=== PATIENT | male | born 1940 | race Caucasian/White ===

== ENCOUNTER 2019-08-21 11:22 | Inpatient (IN) | payer OTHER ==
[2019-08-14 15:36] LABS: BASOPHILS % (AUTO) 0.4 % (0-1); EOSINOPHILS # (AUTO) 0.2 X10'3 (0-0.9); EOSINOPHILS % (AUTO) 2.1 % (0-6); LYMPHOCYTES # (AUTO) 1.3 X10'3 (1.1-4.8); LYMPHOCYTES % (AUTO) 15.2 % (21-51); MEAN CORPUSCULAR HEMOGLOBIN 33.2 PG (27.0-31.0); MEAN CORPUSCULAR HGB CONC 34.8 g/dL (33.0-36.5); MEAN CORPUSCULAR VOLUME 95.4 FL (78-98); MEAN PLATELET VOLUME 9.1 FL (7.4-10.4); MONOCYTES # (AUTO) 0.6 X10'3 (0-0.9); MONOCYTES % (AUTO) 7.6 % (2-12); NEUTROPHILS # (AUTO) 6.3 X10'3 (1.8-7.7); NEUTROPHILS % (AUTO) 74.7 % (42-75); PRE OP HEMATOCRIT 46.5 % (42.0-52.0); PRE OP HEMOGLOBIN 16.2 g/dL (14.0-17.9); PRE OP PLATELET COUNT 202 X10'3 (140-440); RED BLOOD COUNT 4.87 X10'6 (4.70-6.10); RED CELL DISTRIBUTION WIDTH 13.6 % (11.5-14.5)
[2019-08-14 15:47] LABS: PRE OP PROTIME 10.4 SECONDS (9.0-12.0)
[2019-08-14 15:50] LABS: ALBUMIN 3.6 G/DL (3.4-5.0); ALKALINE PHOSPHATASE 75 IU/L (46-116); BLOOD UREA NITROGEN 19 MG/DL (7-18); BUN/CREATININE RATIO 16.4 (5.4-32.0); CALCIUM 9.4 MG/DL (8.5-10.1); CHLORIDE 100 MMOL/L (99-107); CREATININE 1.16 MG/DL (0.60-1.10); PRE OP ALT 22 U/L (30-65); PRE OP ANION GAP 7 (8-16); PRE OP AST 18 U/L (10-37); PRE OP BILIRUB, TOTAL 1.2 MG/DL (0.0-1.0); PRE OP GLUCOSE 122 MG/DL (70-104); PRE OP POTASSIUM 4.2 MMOL/L (3.4-5.1); PRE OP SODIUM 136 MMOL/L (135-145); TOTAL CARBON DIOXIDE 29.3 MMOL/L (24-32); TOTAL PROTEIN 7.2 G/DL (6.4-8.2); eGFR 61 ML/MIN
[~2019-08-21] VITALS: Ht 180.3 cm; Wt 117.9 kg
[2019-08-21] VITALS (16 sets, daily range): BP systolic 132–171; BP diastolic 55–91
[~2019-08-21 11:22] MED LIST: ALBU8.5H8 INH; ASCO500C15 PO; ASPI81TA30 PO; ATR0.5NEB NEB; CETI-102 PO; CHOL100046 PO; DOCUMENT DATE & TIME OF BETA-BLOCKER PO ONE; FAMO20TA8 PO; FISH12002 PO; FLUT16SP2 BOTHNARES; FLUT1BLS11 INH; GLUC-162 PO; MELO-102 PO; METO-395 PO; MONT10TA24 PO; MULT-933 PO; SIMV10TA98 PO; TIOT18CA3 INH; VALS80TA32 PO; cefazolin/dext.iso 2gm/100ml 100 ML IV ONE; famotidine 20mg tablet PO ONE; ringers solution, lacted 1,000 ML IV SCH; vancomycin inj 1,500 MG in normal saline 300ml IV soln IV ONE
[2019-08-21] MEDS ORDERED: ceFAZolin 1000mg inj ONE (13:31)
[2019-08-21] MEDS ORDERED: ondansetron/PF 4mg/2ml inj ONE (14:01)
[2019-08-21] MEDS ORDERED: sevoflurane 250ml liquid IH ONE (14:01)
[2019-08-21] MEDS ORDERED: tranexamic acid inj. 1,000 MG in normal saline 100 ML IV ONE (14:15)
[2019-08-21] MEDS ORDERED: fentaNYL/PF 50MCG/1 ML 2ML syringe ONE ×2 (14:21→15:01)
[2019-08-21] MEDS ORDERED: midazolam 2 mg/2 ml injection ONE (14:22)
[2019-08-21] MEDS ORDERED: ringers solution, lacted 1,000 ML IV SCH (15:13)
[2019-08-21] MEDS ORDERED: ROPIVAcaine 0.2% (10 MG/5 ML) BOLUS INJECTION ADDCANAL PRN (15:15)
[2019-08-21] MEDS ORDERED: morphine 4 MG/ML inj SYRINge IV PRN (15:15)
[2019-08-21] MEDS ORDERED: HYDROmorphone inj. 0.5 MG/0.5 ML DISP.SYRIN IV PRN ×2 (15:15→16:20)
[2019-08-21] MEDS ORDERED: ondansetron/PF 4mg/2ml inj IV PRN ×2 (15:15→16:20)
[2019-08-21] MEDS ORDERED: LIDOcaine 2% (20mg/ml) 5ml vial ONE ×2 (15:21→15:49)
[2019-08-21] MEDS ORDERED: propofol inj 20 ML IV ONE (15:21)
[2019-08-21] MEDS ORDERED: ROPIVAcaine 0.5% (5mg/ml) 30ml vial ONE (15:24)
[2019-08-21] MEDS ORDERED: bisacodyl 10mg suppository rectal RC PRN (16:20)
[2019-08-21] MEDS ORDERED: magnesium hydroxide 30ml (MOM) UD suspension PO PRN (16:20)
[2019-08-21] MEDS ORDERED: diphenhydrAMINE 25mg capsule PO PRN ×2 (16:20)
[2019-08-21] MEDS ORDERED: non-formulary drug (Albuterol Sulfate (Proair Hfa) 2 PUFFS) INH SCH (16:20)
[2019-08-21] MEDS ORDERED: acetaminophen 325mg tablet PO PRN (16:20)
[2019-08-21] MEDS: ROPIVAcaine 0.2%/PF PUMP/bolus 550 ML ADDCANAL SCH ×2 (16:26→21:02)
--- NOTE | 2019-08-21 16:30 | NUR ---
ADMITTED TO PACU FROM OR ACCOMPANIED BY ANESTHESIA. INTIAL PHYSICAL ASSESSMENT DONE AND RECORDED. REPORT RECEIVED FROM ANESTHESIA.
[2019-08-21] MEDS ORDERED: ipratropium/albuterol 3ml nebule IH PRN (16:40)
[2019-08-21] MEDS ORDERED: aspirin 325mg tablet PO SCH (17:30)
--- NOTE | 2019-08-21 17:30 | NUR ---
DISCHARGE CRITERIA MET, REPORT TO FLOOR NURSE IRAIDA HERBERT, VSS TRANSFERRED TO ROOM IN GOOD, STABLE CONDITION. ON Q INCREASED TO 6 AND PRIMER PUMP INITIATED.
--- NOTE | 2019-08-21 18:25 | NUR ---
Received report from KEON Phelan. Assumed patient care.
--- NOTE | 2019-08-21 18:38 | NUR ---
Problems reprioritized. Patient report given, questions answered & plan of care reviewed with KEON Vail.
[2019-08-21] MEDS: potassium Cl 20mEq in NS 1,000 ML IV SCH (18:57)
[2019-08-21] MEDS: famotidine 20mg tablet PO SCH (19:20)
[2019-08-21] MEDS ORDERED: vancomycin/NS 1 GM ADD-VANTAGE 250 ML IV SCH (20:00)
[2019-08-21] MEDS ORDERED: ipratropium 0.5 MG/2.5ML nebule NEB SCH (20:00)
[2019-08-21] MEDS ORDERED: aspirin 81mg tablet.DR PO ONE (20:35)
[2019-08-21] MEDS: sennosides 8.6mg tablet PO SCH (20:59)
[2019-08-21] MEDS: albuterol 2.5 MG/3 ML nebule NEB SCH (21:22)
[2019-08-21] MEDS: budesonide 0.5mg/2ml UD nebule IH SCH (21:22)
[2019-08-21] MEDS: HYDROcodone/acetaminophen 10/325mg tab PO PRN (21:38)
[2019-08-21] MEDS: ceFAZolin/D5W- 1GM premix 50 ML IV SCH (23:57)
[2019-08-22] VITALS (7 sets, daily range): BP systolic 110–125; BP diastolic 41–69
[2019-08-22] MEDS: HYDROcodone/acetaminophen 10/325mg tab PO PRN ×3 (02:23→14:34)
[2019-08-22] MEDS: albuterol 2.5 MG/3 ML nebule NEB SCH (02:49)
--- NOTE | 2019-08-22 06:22 | NUR ---
Patient report given, questions answered and plan of care reviewed with KEON Root.
--- NOTE | 2019-08-22 06:34 | NUR ---
Patient in room ORTHO 4012. I have received report from KEON Root. and had the opportunity to ask questions and assume patient care.
--- NOTE | 2019-08-22 06:43 | NUR ---
Patient in room ORTHO 4012. I have received report from Genna HERBERT and had the opportunity to ask questions and assume patient care.
[2019-08-22] MEDS: potassium Cl 20mEq in NS 1,000 ML IV SCH ×3 (06:48→22:29)
--- NOTE | 2019-08-22 06:50 | NUR ---
on-q increased to 10ml/hr
[2019-08-22 07:06] LABS: BASOPHILS % (AUTO) 0.3 % (0-1); EOSINOPHILS # (AUTO) 0.1 X10'3 (0-0.9); EOSINOPHILS % (AUTO) 0.7 % (0-6); HEMATOCRIT 40.2 % (42.0-52.0); HEMOGLOBIN 14.2 g/dl (14.0-17.9); LYMPHOCYTES # (AUTO) 1.2 X10'3 (1.1-4.8); LYMPHOCYTES % (AUTO) 14.3 % (21-51); MEAN CORPUSCULAR HEMOGLOBIN 33.2 PG (27.0-31.0); MEAN CORPUSCULAR HGB CONC 35.3 g/dL (33.0-36.5); MEAN CORPUSCULAR VOLUME 94.2 FL (78-98); MONOCYTES # (AUTO) 0.8 X10'3 (0-0.9); MONOCYTES % (AUTO) 9.8 % (2-12); NEUTROPHILS # (AUTO) 6.4 X10'3 (1.8-7.7); NEUTROPHILS % (AUTO) 74.9 % (42-75); PLATELET COUNT 161 X10'3 (140-440); RED BLOOD COUNT 4.27 X10'6 (4.70-6.10); RED CELL DISTRIBUTION WIDTH 13.1 % (11.5-14.5); WHITE BLOOD COUNT 8.5 X10'3 (4.5-11.0)
[2019-08-22] MEDS: ceFAZolin/D5W- 1GM premix 50 ML IV SCH (07:20)
[2019-08-22] MEDS: ipratropium/albuterol 3ml nebule NEB SCH ×3 (07:30→20:22)
[2019-08-22] MEDS: budesonide 0.5mg/2ml UD nebule IH SCH ×2 (07:30→20:23)
[2019-08-22 07:39] LABS: ALANINE AMINOTRANSFERASE 17 U/L (12-78); ALBUMIN/GLOBULIN RATIO 1.1 (1.1-1.5); ALKALINE PHOSPHATASE 66 IU/L (46-116); ANION GAP 6 (8-16); ASPARTATE AMINO TRANSFERASE 16 U/L (10-37); BILIRUBIN,TOTAL 1.5 MG/DL (0.1-1.0); BLOOD UREA NITROGEN 8 MG/DL (7-18); BUN/CREATININE RATIO 7.6 (5.4-32.0); CALCIUM 8.4 MG/DL (8.5-10.1); CHLORIDE 102 MMOL/L (99-107); CREATININE 1.05 MG/DL (0.60-1.10); GLUCOSE 104 MG/DL (70-104); SODIUM 136 MMOL/L (135-145); TOTAL CARBON DIOXIDE 27.7 MMOL/L (24-32); TOTAL PROTEIN 5.8 G/DL (6.4-8.2); eGFR 68 ML/MIN
[2019-08-22] MEDS ORDERED: non-formulary drug (Tiotropium Bromide (Spiriva) 2 PUFFS) INH SCH (08:00)
[2019-08-22] MEDS ORDERED: non-formulary drug (Fluticasone Propion/Salmeterol (Wixela 500-50 Inhub) 1 PUFF) INH SCH (08:00)
[2019-08-22] MEDS: losartan 50mg tablet PO SCH (08:00)
[2019-08-22] MEDS: montelukast 10mg tablet PO SCH (08:21)
[2019-08-22] MEDS: famotidine 20mg tablet PO SCH ×2 (08:22→20:01)
[2019-08-22] MEDS: aspirin 81mg tablet.DR PO SCH ×2 (08:22→17:49)
[2019-08-22] MEDS: metoprolol succinate 25mg (24-HOUR) SR. Tablet PO SCH (08:49)
[2019-08-22] MEDS: ROPIVAcaine 0.2%/PF PUMP/bolus 550 ML ADDCANAL SCH (09:15)
--- NOTE | 2019-08-22 11:38 | NUR ---
Student Medication Administration:For this medication-pass time frame [id number], all medications were reviewed, administered and documented per hospital policy by Elvia Nix. Student documentation:I have reviewed and agree with all interventions, assessments performed and documented by Elvia Nix.
--- NOTE | 2019-08-22 18:20 | NUR ---
Received patient report from KEON Root. Assumed patient care.
--- NOTE | 2019-08-22 18:22 | NUR ---
Problems reprioritized. Patient report given, questions answered & plan of care reviewed with Genna HERBERT.
[2019-08-22] MEDS: sennosides 8.6mg tablet PO SCH (20:01)
[2019-08-23] MEDS: ipratropium/albuterol 3ml nebule NEB SCH ×4 (03:00→20:15)
[2019-08-23] MEDS: HYDROcodone/acetaminophen 10/325mg tab PO PRN (05:16)
[2019-08-23 06:00] VITALS: BP 139/64
--- NOTE | 2019-08-23 06:02 | NUR ---
Patient report given, questions answered and plan of care reviewed with KEON Root
[2019-08-23 06:04] LABS: BASOPHILS % (AUTO) 0.2 % (0-1); EOSINOPHILS % (AUTO) 0.4 % (0-6); HEMATOCRIT 37.1 % (42.0-52.0); HEMOGLOBIN 13.2 g/dl (14.0-17.9); LYMPHOCYTES % (AUTO) 12.5 % (21-51); MEAN CORPUSCULAR HEMOGLOBIN 33.9 PG (27.0-31.0); MEAN CORPUSCULAR HGB CONC 35.6 g/dL (33.0-36.5); MEAN CORPUSCULAR VOLUME 95.2 FL (78-98); MONOCYTES # (AUTO) 0.9 X10'3 (0-0.9); MONOCYTES % (AUTO) 11.6 % (2-12); NEUTROPHILS # (AUTO) 5.9 X10'3 (1.8-7.7); NEUTROPHILS % (AUTO) 75.3 % (42-75); PLATELET COUNT 133 X10'3 (140-440); RED CELL DISTRIBUTION WIDTH 13.5 % (11.5-14.5); WHITE BLOOD COUNT 7.8 X10'3 (4.5-11.0)
[2019-08-23 06:26] LABS: ALANINE AMINOTRANSFERASE 12 U/L (12-78); ALBUMIN 2.6 G/DL (3.4-5.0); ALBUMIN/GLOBULIN RATIO 0.8 (1.1-1.5); ALKALINE PHOSPHATASE 59 IU/L (46-116); ANION GAP 9 (8-16); ASPARTATE AMINO TRANSFERASE 16 U/L (10-37); BILIRUBIN,TOTAL 1.8 MG/DL (0.1-1.0); BLOOD UREA NITROGEN 9 MG/DL (7-18); CALCIUM 8.1 MG/DL (8.5-10.1); CHLORIDE 100 MMOL/L (99-107); GLUCOSE 115 MG/DL (70-104); POTASSIUM 3.7 MMOL/L (3.5-5.1); SODIUM 135 MMOL/L (135-145); TOTAL CARBON DIOXIDE 26.5 MMOL/L (24-32); TOTAL PROTEIN 5.8 G/DL (6.4-8.2); eGFR 81 ML/MIN
--- NOTE | 2019-08-23 07:15 | NUR ---
Patient in room ORTHO 4012. I have received report from kat kennedy and had the opportunity to ask questions and assume patient care.
[2019-08-23] MEDS: losartan 50mg tablet PO SCH (08:14)
[2019-08-23] MEDS: montelukast 10mg tablet PO SCH (08:14)
[2019-08-23] MEDS: metoprolol succinate 25mg (24-HOUR) SR. Tablet PO SCH (08:14)
[2019-08-23] MEDS: aspirin 81mg tablet.DR PO SCH ×2 (08:15→17:46)
[2019-08-23] MEDS: famotidine 20mg tablet PO SCH ×2 (08:15→20:31)
[2019-08-23] MEDS: budesonide 0.5mg/2ml UD nebule IH SCH ×2 (09:05→20:15)
[2019-08-23 10:00] VITALS: BP 135/58
[2019-08-23] MEDS: potassium Cl 20mEq in NS 1,000 ML IV SCH (10:36)
[2019-08-23] MEDS: ROPIVAcaine 0.2%/PF PUMP/bolus 550 ML ADDCANAL SCH (10:50)
[2019-08-23 18:00] VITALS: BP 128/55
--- NOTE | 2019-08-23 18:14 | NUR ---
Problems reprioritized. Patient report given, questions answered & plan of care reviewed with Briseida HERBERT.
[2019-08-23] MEDS: sennosides 8.6mg tablet PO SCH (20:31)
[2019-08-23 22:00] VITALS: BP 120/58
[2019-08-24] MEDS: ipratropium/albuterol 3ml nebule NEB SCH ×3 (02:53→13:52)
[2019-08-24] MEDS: HYDROcodone/acetaminophen 10/325mg tab PO PRN (05:05)
[2019-08-24 06:00] VITALS: BP 145/77
--- NOTE | 2019-08-24 06:00 | NUR ---
Patient in room ORTHO 4012. I have received report from Briseida HERBERT and had the opportunity to ask questions and assume patient care.
[2019-08-24 06:54] LABS: BASOPHILS % (AUTO) 0.3 % (0-1); EOSINOPHILS # (AUTO) 0.1 X10'3 (0-0.9); EOSINOPHILS % (AUTO) 1.1 % (0-6); HEMATOCRIT 36.9 % (42.0-52.0); HEMOGLOBIN 13.1 g/dl (14.0-17.9); LYMPHOCYTES % (AUTO) 12.6 % (21-51); MEAN CORPUSCULAR HEMOGLOBIN 33.5 PG (27.0-31.0); MEAN CORPUSCULAR HGB CONC 35.4 g/dL (33.0-36.5); MEAN CORPUSCULAR VOLUME 94.6 FL (78-98); MONOCYTES # (AUTO) 0.7 X10'3 (0-0.9); MONOCYTES % (AUTO) 8.9 % (2-12); NEUTROPHILS # (AUTO) 5.9 X10'3 (1.8-7.7); NEUTROPHILS % (AUTO) 77.1 % (42-75); PLATELET COUNT 137 X10'3 (140-440); RED CELL DISTRIBUTION WIDTH 13.3 % (11.5-14.5); WHITE BLOOD COUNT 7.6 X10'3 (4.5-11.0)
[2019-08-24 07:16] LABS: ALANINE AMINOTRANSFERASE 11 U/L (12-78); ALBUMIN 2.5 G/DL (3.4-5.0); ALBUMIN/GLOBULIN RATIO 0.7 (1.1-1.5); ALKALINE PHOSPHATASE 58 IU/L (46-116); ANION GAP 9 (8-16); ASPARTATE AMINO TRANSFERASE 16 U/L (10-37); BILIRUBIN,TOTAL 1.1 MG/DL (0.1-1.0); BLOOD UREA NITROGEN 10 MG/DL (7-18); BUN/CREATININE RATIO 12.5 (5.4-32.0); CALCIUM 8.2 MG/DL (8.5-10.1); CHLORIDE 98 MMOL/L (99-107); GLUCOSE 110 MG/DL (70-104); POTASSIUM 3.8 MMOL/L (3.5-5.1); SODIUM 133 MMOL/L (135-145); TOTAL CARBON DIOXIDE 25.6 MMOL/L (24-32); eGFR > 90 ML/MIN
[2019-08-24] MEDS: montelukast 10mg tablet PO SCH (08:21)
[2019-08-24] MEDS: losartan 50mg tablet PO SCH (08:22)
[2019-08-24] MEDS: famotidine 20mg tablet PO SCH (08:22)
[2019-08-24] MEDS: metoprolol succinate 25mg (24-HOUR) SR. Tablet PO SCH (08:23)
[2019-08-24] MEDS: aspirin 81mg tablet.DR PO SCH (08:23)
[2019-08-24 08:31] VITALS: BP 128/67
[2019-08-24] MEDS ORDERED: HYDR-4353 PO (09:00)
[2019-08-24] MEDS ORDERED: ASPI-1071 PO (09:00)
[2019-08-24] MEDS: budesonide 0.5mg/2ml UD nebule IH SCH (09:05)
[2019-08-24 10:00] VITALS: BP 122/65
--- NOTE | 2019-08-24 11:51 | NUR ---
Student documentation: I have reviewed all interventions, assessments performed and documented by Fausto PULLIAM [facility]. Student Medication Administration: For this medication-pass time frame, all medication were reviewed, dispensed, administered and documented per hospital policy by Fausto Lizarraga [facility].
== END 2019-08-24 16:10 | disposition home health service (06) | DRG 467 ==
LOC: PAS IN 11:22 → EDSTATUS 14:00 → ORTHO 4S 17:30
PROVIDERS: ADMIT Orthopaedic Surgery; ATTEND Orthopaedic Surgery
PROC: 0SRV0JZ Replacement of Right Knee Joint, Tibial Surface with Synthetic Substitute, Open Approach (ICD-10-PCS; 2019-08-21)
PROC: 3E0T3BZ Introduction of Anesthetic Agent into Peripheral Nerves and Plexi, Percutaneous Approach (ICD-10-PCS; 2019-08-21)
PROC: 0SPV0JZ Removal of Synthetic Substitute from Right Knee Joint, Tibial Surface, Open Approach (ICD-10-PCS; principal; 2019-08-21 14:01)
DX: M25.361 Other instability, right knee (principal); D62 Acute posthemorrhagic anemia; I10 Essential (primary) hypertension; M17.11 Unilateral primary osteoarthritis, right knee; J44.9 Chronic obstructive pulmonary disease, unspecified; K21.9 Gastro-esophageal reflux disease without esophagitis; E66.9 Obesity, unspecified; Z68.36 Body mass index [BMI] 36.0-36.9, adult; Z79.899 Other long term (current) drug therapy
CPT/HCPCS: 36415; 80053; 82948; 85025; 85610; 85730; 86885; 86900; 86901; 86920; 87081; 93005; 94640; 94760; 97110; 97116; 97162; 97530; G0378; J0690; J2001; J2250; J2405; J2704; J2795; J3010; J3370; J3480; J7120; J7626

== ENCOUNTER 2020-06-25 10:57 | Emergency (ER) | payer OTHER ==
[~2020-06-25] VITALS: Ht 182.9 cm; Wt 10.9 kg
[~2020-06-25 10:57] MED LIST changes: +ADV50100 IH; -ASCO500C15 PO; +ASPI-612 PO; -ASPI81TA30 PO; -CETI-102 PO; +CETI10CA PO; -CHOL100046 PO; -DOCUMENT DATE & TIME OF BETA-BLOCKER PO ONE; -FISH12002 PO; +FLUT16SP16 BOTHNARES; -FLUT16SP2 BOTHNARES; -GLUC-162 PO; -MELO-102 PO; -MONT10TA24 PO; +MONT10TA26 PO; -MULT-933 PO; -VALS80TA32 PO; -cefazolin/dext.iso 2gm/100ml 100 ML IV ONE; -famotidine 20mg tablet PO ONE; -ringers solution, lacted 1,000 ML IV SCH; -vancomycin inj 1,500 MG in normal saline 300ml IV soln IV ONE
--- NOTE | 2020-06-25 11:06 | NUR ---
PLEASE CALL PT'S SOURCE INSPECTOR TO PICK HIM UP [facility]. SOURCE INSPECTOR: AMILCAR;
[2020-06-25 11:32] LABS: CLARITY,URINE TURBID (Clear); COLOR,URINE STRAW (Yellow); GLUCOSE, URINE NEGATIVE (Neg); KETONES,URINE NEGATIVE (Neg); LEUKOCYTE ESTERASE ,URINE LARGE (Neg); NITRITES, URINE NEGATIVE (Neg); OCCULT BLOOD,URINE LARGE (Neg); PROTEIN,URINE TRACE mg/dl (Neg); UA COLLECTION TYPE FOLEY CATH
[2020-06-25 11:40] LABS: WBC,URINE TNTC /HPF (0-4)
[2020-06-25 11:41] LABS: BACTERIA,URINE 3+ /HPF (Neg); RBC,URINE TNTC /HPF (0-2); SQUAMOUS EPITHELIAL CELL,UR FEW /LPF (FEW)
[2020-06-25 11:42] LABS: WBC CLUMPS,URINE MANY /HPF (NEGATIVE)
[2020-06-25] MEDS ORDERED: FOSFOMYCIN TROMETHAMINE 3 GM PACKET PO ONE (12:05)
--- NOTE | 2020-06-25 12:35 | NUR ---
5F DUAL LUMEN MIDLINE PLACED TO RIGHT BASILIC VEIN X'S 1 ATTEMPT WITH SUCCESS USING ULTRASOUND GUIDANCE. TIP ENDS MIDAXILLARY. Jameson GUZMAN PIC RN
--- NOTE | 2020-06-25 15:20 | NUR ---
Patient resting comfortably in bed. He requests food which is provided. 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
--- NOTE | 2020-06-25 16:53 | NUR ---
Patient continues to rest comfortably in bed. We are still waiting for transportation.
--- NOTE | 2020-06-25 18:10 | NUR ---
Spoke to Ephraim who states he is about 25 minutes out and is on his way for the patient.
[2020-06-25 18:31] VITALS: BP 126/71
== END 2020-06-25 19:00 | disposition home or self-care (01) ==
LOC: ER 10:57
DX: N39.0 Urinary tract infection, site not specified (principal); Z98.890 Other specified postprocedural states; Z79.82 Long term (current) use of aspirin; Z79.899 Other long term (current) drug therapy
CPT/HCPCS: 76937; 81001; 87077; 87088; 87186; 99285